=== PATIENT | male | born 1940 | race Caucasian/White ===

== ENCOUNTER 2020-01-29 17:37 | Outpatient (REF) | payer MEDICARE, SELFPAY ==
[2020-01-29 20:58] LABS: Anion Gap 11.7 mmol/L (3-11); BUN 17 mg/dL (7-18); CO2 24.3 mmol/L (21.0-32.0); CREATININE 0.94 mg/dL (0.70-1.30); Calcium 9.5 mg/dL (8.5-10.1); Calculated LDL 125 mg/dL (<100); Chloride 103 mmol/L (98-107); Cholesterol 209 mg/dL (<200); Glucose 90 mg/dL (74-106); HDL Cholesterol 63 mg/dL (40-60); Potassium 4.1 mmol/L (3.5-5.1); Sodium 139 mmol/L (136-145); Triglyceride 108 mg/dL (<150)
[2020-01-29 21:43] LABS: Hemoglobin A1C 6.3 % (<5.7)
== END 2020-01-29 17:57 ==
LOC: LBN 17:37
PROVIDERS: PCP Nurse Practitioner Family; Visit Provider Nurse Practitioner Family
DX: I10 Essential (primary) hypertension (principal); R73.01 Impaired fasting glucose
CPT/HCPCS: 80048; 80061; 83036

== ENCOUNTER 2020-03-11 01:33 | Outpatient (CLI) | payer MEDICARE, SELFPAY ==
--- NOTE | 2020-03-11 09:00 | DI.US_ITS ---
EXAM: US SOFT TISSUE HEAD OR NECK CLINICAL HISTORY: Suspected lipoma, posterior neck,D17.0. TECHNIQUE: Ultrasound was performed using standard protocol. COMPARISON: No exams were available for comparison FINDINGS: Sonographic assessment utilizing grayscale and color Doppler imaging was performed and targeted to th e area of clinical concern. Near concern posteriorly there is a subcutaneous vascular slightly hyperechoic relatively well-define d mass measuring approximately 3.4 x 1.5 x 3.1 centimetres.. Probably a lipoma. IMPRESSION: Probable lipoma as described above. Recommend follow-up ultrasound in 6 months to ensure stability,, r earlier if clinically indicated. DATA REPOSITORY:
== END 2020-03-11 01:53 ==
PROVIDERS: PCP Nurse Practitioner Family; Visit Provider Nurse Practitioner Family
DX: D17.0 Benign lipomatous neoplasm of skin and subcutaneous tissue of head, face and neck (principal)
CPT/HCPCS: 76536

== ENCOUNTER → 2020-06-17 14:41 | Outpatient (BNVA) | payer MEDICARE, SELFPAY | PROVIDERS: PCP Nurse Practitioner Family; Referring Provider Nurse Practitioner Family; Visit Provider Surgery | DX: D17.0 Benign lipomatous neoplasm of skin and subcutaneous tissue of head, face and neck (principal); Z85.21 Personal history of malignant neoplasm of larynx | CPT/HCPCS: 11422; 99202; 99205 ==

== ENCOUNTER 2020-06-17 17:22 | Outpatient (REF) | payer MEDICARE, SELFPAY ==
--- NOTE | 2020-06-17 16:00 | SOFT_PTH ---
PATIENT: Melvin Deleon LOC: [facility] U#:[id number] AGE/SX: 79/M ROOM: RE06/17/[address]: Meron Rocha : 1940 BED: DIS: 06/17/2020 SPEC #: [id number] RECD: 06/17/20 17:30 STATUS: JOSE E RERosa Elena #: [id number] JESSICA: 06/17/20 16:[address]: Meron Rocha DEPT: Surgical Specimen RECD BY: Shruthi Infante ENTERED: 06/17/20 17:30 SP TYPE: SOFT OTHR DR: JUDIE العلي Tissues: 1 - SOFT TISSUE-CYST(NOT LIPOMA) Procedures: GROSS AND MICRO LEVEL 5 Comments: [id number]
== END 2020-06-17 17:23 | disposition home or self-care (01) ==
LOC: LBN 17:22
PROVIDERS: PCP Nurse Practitioner Family; Visit Provider Surgery
DX: D17.0 Benign lipomatous neoplasm of skin and subcutaneous tissue of head, face and neck (principal); Z85.21 Personal history of malignant neoplasm of larynx
CPT/HCPCS: 88305; 88307

== ENCOUNTER → 2020-06-28 08:44 | Outpatient (BNVA) | payer MEDICARE, SELFPAY | PROVIDERS: PCP Nurse Practitioner Family; Referring Provider Nurse Practitioner Family; Visit Provider Physical Therapy Assistant | DX: Z48.02 Encounter for removal of sutures (principal) ==

== ENCOUNTER 2021-04-10 17:23 | Outpatient (REF) | payer MEDICARE, SELFPAY ==
[2021-04-10 18:05] LABS: Hemoglobin A1C 6.4 % (<5.7)
[2021-04-10 18:14] LABS: Anion Gap 10.7 mmol/L (3-11); BUN 18 mg/dL (7-18); CO2 22.3 mmol/L (21.0-32.0); CREATININE 0.8 mg/dL (0.70-1.30); Calcium 9.2 mg/dL (8.5-10.1); Calculated LDL 136 mg/dL (<100); Chloride 104 mmol/L (98-107); Cholesterol 208 mg/dL (<200); Glucose 117 mg/dL (74-106); HDL Cholesterol 59 mg/dL (40-60); Potassium 4.6 mmol/L (3.5-5.1); Sodium 137 mmol/L (136-145); Triglyceride 69 mg/dL (<150)
== END 2021-04-10 17:24 | disposition home or self-care (01) ==
LOC: LBN 17:23
PROVIDERS: PCP Nurse Practitioner Family; Visit Provider Nurse Practitioner Family
DX: I10 Essential (primary) hypertension (principal); R73.03 Prediabetes; E78.5 Hyperlipidemia, unspecified
CPT/HCPCS: 80048; 80061; 83036

== ENCOUNTER → 2021-04-16 17:27 | Outpatient (CLI) | payer MEDICARE, SELFPAY ==
--- NOTE | 2021-04-16 11:00 | DI.US_ITS ---
Exam(s) US SCROTUM EXAM: US SCROTUM CLINICAL HISTORY: Very enlarged right testicle. No trauma, N50.89 TECHNIQUE: Ultrasound performed using standard protocol. COMPARISON: US US SOFT TISSUE HEAD OR NECK from 03/11/2020 FINDINGS: Scrotal ultrasound was performed according to the usual protocol. Testes show homogeneous echotextur e and are symmetrical in size. There is mildly increased vascular flow to the right testis as compar ed to the left. There is no intra testicular mass. There is a bilateral hydrocele, right greater than left. There is an 8 millimeter in diameter epididymal head cyst or spermatocele on the right. Incidental note is made of small scrotal pearls. IMPRESSION: Bilateral hydrocele, right greater than left. Minimally asymmetrical vascular flow to the testes, right greater than left, clinical correlation is requested regarding any possibility of orchitis. DATA REPOSITORY:
== END ==
PROVIDERS: PCP Nurse Practitioner Family; Visit Provider Nurse Practitioner Family
DX: N50.89 Other specified disorders of the male genital organs (principal); N44.8 Other noninflammatory disorders of the testis; N43.3 Hydrocele, unspecified; N50.3 Cyst of epididymis
CPT/HCPCS: 76870

== ENCOUNTER → 2021-04-22 14:30 | Outpatient (BNVA) | payer MEDICARE, SELFPAY | PROVIDERS: PCP Nurse Practitioner Family; Referring Provider Nurse Practitioner Family; Visit Provider Urology | DX: N40.1 Benign prostatic hyperplasia with lower urinary tract symptoms (principal); N13.8 Other obstructive and reflux uropathy; N43.3 Hydrocele, unspecified; Z12.5 Encounter for screening for malignant neoplasm of prostate | CPT/HCPCS: 36415; 99204; 99214 ==

== ENCOUNTER 2021-04-22 17:28 | Outpatient (REF) | payer MEDICARE, SELFPAY ==
[2021-04-22 22:06] LABS: PSA, Diagnostic 4.4 ng/mL (0.0-6.5)
== END 2021-04-22 17:29 | disposition home or self-care (01) ==
LOC: LBN 17:28
PROVIDERS: PCP Nurse Practitioner Family; Visit Provider Urology
DX: N40.1 Benign prostatic hyperplasia with lower urinary tract symptoms
CPT/HCPCS: 84153

== ENCOUNTER 2021-08-04 20:14 | Outpatient (REF) | payer MEDICARE, SELFPAY ==
[2021-08-04 20:49] LABS: Abs Immature Grans 0.01 10^3/uL (0.0-0.06); Absolute Basophil Count 0.04 10^3/uL (0.0-0.2); Absolute Eosinophil Count 0.42 10^3/uL (0.0-0.7); Absolute Neutrophil Count 2.78 10^3/uL (1.2-6.7); Basophils % 0.7; Eosinophils % 7.1; HCT 44.4 % (40.0-50.0); HGB 15.2 g/dL (13.5-17.5); Immature Grans % 0.2; MCH 32.2 pg (27.0-33.0); MCHC 34.2 % (32.0-36.0); MCV 94.1 fL (80-95); MPV 9.4 fL (8.0-11.0); Monocytes % 8.4; Neutrophils % 46.6; Platelet Count 259 10^3/uL (130-400); RBC 4.72 10^6/uL (4.36-5.78); RDW 13.1 % (11.8-14.1); RDW-SD 45.2 fL; WBC 5.95 10^3/uL (4.4-10.8)
[2021-08-04 21:02] LABS: ALT 29 U/L (16-63); AST 17 U/L (15-37); Alkaline Phosphatase 57 U/L (46-116); Anion Gap 7.2 mmol/L (3-11); BUN 14 mg/dL (7-18); Bilirubin, Total 0.7 mg/dL (0.2-1.0); CO2 23.8 mmol/L (21.0-32.0); CREATININE 0.9 mg/dL (0.70-1.30); Calcium 8.9 mg/dL (8.5-10.1); Chloride 105 mmol/L (98-107); Creatine Kinase 102 U/L (39-308); Glucose 99 mg/dL (74-106); Potassium 4.3 mmol/L (3.5-5.1); Sodium 136 mmol/L (136-145); Total Protein 7.7 g/dL (6.4-8.2)
[2021-08-05 17:28] LABS: CRP, High Sensitivity 1.04 mg/L (See Note)
== END 2021-08-04 20:15 | disposition home or self-care (01) ==
LOC: LBN 20:14
PROVIDERS: PCP Nurse Practitioner Family; Visit Provider Physician Assistant
DX: I10 Essential (primary) hypertension (principal); M79.89 Other specified soft tissue disorders
CPT/HCPCS: 80053; 82550; 86141; 85025

== ENCOUNTER 2021-09-24 11:27 | Outpatient (CLI) | payer MEDICARE, SELFPAY ==
[2021-09-24 13:07] LABS: Magnesium 1.8 mg/dL (1.8-2.4)
[2021-09-24 13:25] LABS: D-Dimer 1020 ng/mlFEU (<500)
== END 2021-09-24 11:28 | disposition home or self-care (01) ==
LOC: LOS 11:29
PROVIDERS: PCP Nurse Practitioner Family; Referring Provider Nurse Practitioner Family; Visit Provider Nurse Practitioner Family
DX: M79.661 Pain in right lower leg (principal); M79.662 Pain in left lower leg
CPT/HCPCS: 36415; 83735; 85379

== ENCOUNTER 2021-09-26 00:21 | Outpatient (CLI) | payer MEDICARE, SELFPAY ==
--- NOTE | 2021-09-26 07:00 | DI.US_ITS ---
Exam(s) US EXTREMITY VENOUS BI EXAM: US EXTREMITY VENOUS BI CLINICAL HISTORY: eval for DVT,bilat calf pain,m79.661,m79.662 TECHNIQUE: Ultrasound performed using standard protocol. COMPARISON: US US SCROTUM from 04/16/2021 FINDINGS: Duplex venous ultrasound both lower extremities was performed with 2D and Doppler evaluation. There is no evidence of deep venous thrombosis. Note is made of bilateral apparent complex Bhardwaj's cysts, measuring up to about 28 by 30 x 13 millime ters in diameter on the left and about 15 x 15 x 50 millimeters in diameter on the right. IMPRESSION: No evidence deep venous thrombosis. Large bilateral complex Bhardwaj's cysts noted. DATA REPOSITORY:
== END 2021-09-26 00:41 ==
LOC: DI 00:21
PROVIDERS: PCP Nurse Practitioner Family; Visit Provider Nurse Practitioner Family
DX: M79.661 Pain in right lower leg (principal); M79.662 Pain in left lower leg; M71.22 Synovial cyst of popliteal space [Baker], left knee; M71.21 Synovial cyst of popliteal space [Baker], right knee
CPT/HCPCS: 93970

== ENCOUNTER 2022-05-25 14:00 | Outpatient (CLI) | payer MEDICARE, SELFPAY ==
--- NOTE | 2022-05-25 11:00 | DI.RAD_ITS ---
Exam(s) XR KNEE LT 3V AP,LAT,GURU EXAM: XR KNEE LT 3V AP,LAT,GURU CLINICAL HISTORY: knee pain, left, M25.562. TECHNIQUE: 2D digital imaging was performed. Three views. COMPARISON: No exams were available for comparison FINDINGS: BONES: No acute fracture is present. No bony destructive lesion is seen. JOINTS: Severe narrowing of the medial femoral tibial joint space with a [id number]-uk-[id number] appearance. So me lateral subluxation of the tibia with respect to the femur. Flattening of the tibial spines. Per iarticular spurring noted throughout. Small joint effusion. SOFT TISSUE: Normal. IMPRESSION: Severe degenerative changes, greatest of the medial femoral tibial joint. DATA REPOSITORY: RADIATION DOSE DELIVERED:
== END 2022-05-25 14:20 ==
LOC: DI 14:01
PROVIDERS: PCP Nurse Practitioner Family; Visit Provider Physician Assistant
DX: M17.12 Unilateral primary osteoarthritis, left knee (principal)
CPT/HCPCS: 73562

== ENCOUNTER 2022-06-01 02:38 | Outpatient (CLI) | payer MEDICARE, SELFPAY ==
[2022-06-01 12:43] LABS: Hemoglobin A1C 7.1 % (<5.7)
[2022-06-01 12:49] LABS: Anion Gap 8.1 mmol/L (3-11); BUN 23 mg/dL (7-18); CO2 27.9 mmol/L (21.0-32.0); CREATININE 0.9 mg/dL (0.70-1.30); Calcium 9.7 mg/dL (8.5-10.1); Calculated LDL 99 mg/dL (<100); Chloride 102 mmol/L (98-107); Cholesterol 175 mg/dL (<200); Glucose 152 mg/dL (74-106); HDL Cholesterol 52 mg/dL (40-60); Potassium 4.3 mmol/L (3.5-5.1); Sodium 138 mmol/L (136-145); Triglyceride 122 mg/dL (<150)
== END 2022-06-01 02:39 | disposition home or self-care (01) ==
LOC: LBO 02:38
PROVIDERS: PCP Nurse Practitioner Family; Visit Provider Nurse Practitioner Family
DX: I10 Essential (primary) hypertension (principal); R73.03 Prediabetes
CPT/HCPCS: 36415; 80048; 80061; 83036

== ENCOUNTER 2023-03-18 09:19 | Outpatient (CLI) | payer MEDICARE, SELFPAY ==
[2023-03-18 12:38] LABS: Hemoglobin A1C 7.5 % (<5.7)
[2023-03-18 13:20] LABS: Anion Gap 12.1 mmol/L (3-11); BUN 21 mg/dL (7-18); CO2 25.9 mmol/L (21.0-32.0); CREATININE 0.9 mg/dL (0.70-1.30); Calcium 9.5 mg/dL (8.5-10.1); Chloride 102 mmol/L (98-107); Estimated GFR 85.27 (mL/min/1.73m2); Glucose 179 mg/dL (74-106); Potassium 4.2 mmol/L (3.5-5.1); Sodium 140 mmol/L (136-145); TSH (W/Ref FT4) 1.44 uIU/mL (0.36-3.74)
[2023-03-18 20:14] LABS: PSA, Screening 1.7 ng/mL (<=6.5)
== END 2023-03-18 09:20 | disposition home or self-care (01) ==
LOC: LOS 09:19
PROVIDERS: PCP Nurse Practitioner Family; Referring Provider Nurse Practitioner Family; Visit Provider Nurse Practitioner Family
DX: Z12.5 Encounter for screening for malignant neoplasm of prostate (principal); E11.9 Type 2 diabetes mellitus without complications; I10 Essential (primary) hypertension
CPT/HCPCS: 36415; 80048; 84153; 83036; 84443

== ENCOUNTER 2023-03-18 13:53 | Outpatient (REF) | payer MEDICARE, SELFPAY ==
[2023-03-18 15:41] LABS: Bilirubin Negative (Negative); Blood Trace-intact (Negative); Clarity Cloudy (Clear); Glucose Negative (Negative); Ketones Negative (Negative); Leukocyte Esterase Moderate (Negative); Nitrite Negative (Negative); Specific Gravity 1.025 (1.005-1.025); Urobilinogen 0.2 mg/dL (Up to 0.2); pH 5.5 (5-8)
[2023-03-18 15:49] LABS: WBC >50 HPF (0-5)
[2023-03-18 15:50] LABS: Bacteria Few HPF (Negative); C & S Indicated? Yes; Casts Negative LPF (Negative); Crystals Negative HPF (Negative); Epithelial Cells Few HPF (Negative); Mucus Heavy (Negative); RBC 0-2 HPF (0-2)
== END 2023-03-18 13:54 | disposition home or self-care (01) ==
LOC: LBN 13:53
PROVIDERS: PCP Nurse Practitioner Family; Visit Provider Nurse Practitioner Family
DX: N40.1 Benign prostatic hyperplasia with lower urinary tract symptoms (principal); R82.998 Other abnormal findings in urine
CPT/HCPCS: 87077; 81003; 81015; 87086

== ENCOUNTER 2023-04-19 07:54 | Outpatient (REF) | payer MEDICARE, SELFPAY ==
[2023-04-19 15:05] LABS: Bilirubin Negative (Negative); Blood Negative (Negative); Clarity Clear (Clear); Glucose Negative (Negative); Ketones Negative (Negative); Leukocyte Esterase Negative (Negative); Nitrite Negative (Negative); Specific Gravity 1.015 (1.005-1.025); Urobilinogen 0.2 mg/dL (Up to 0.2)
[2023-04-19 16:02] LABS: COMMENT (LAB VIEW ONLY) 77.85 mg/dL; Microalb ug/mg Crea 7.2 ug/mg Cr
== END 2023-04-19 07:55 | disposition home or self-care (01) ==
LOC: LBN 07:54
PROVIDERS: PCP Nurse Practitioner Family; Visit Provider Nurse Practitioner Family
DX: N40.1 Benign prostatic hyperplasia with lower urinary tract symptoms (principal); E11.9 Type 2 diabetes mellitus without complications
CPT/HCPCS: 81003; 82043; 82570

== ENCOUNTER 2024-04-24 09:02 | Outpatient (CLI) | payer MEDICARE, SELFPAY ==
[2024-04-24 13:05] LABS: ALT 27 U/L (16-63); AST 25 U/L (15-37); Albumin 3.7 g/dL (3.4-5.0); Alkaline Phosphatase 65 U/L (46-116); Anion Gap 10.9 mmol/L (3-11); BUN 12 mg/dL (7-18); Bilirubin, Total 0.92 mg/dL (0.2-1.0); CO2 25.1 mmol/L (21.0-32.0); CREATININE 0.9 mg/dL (0.70-1.30); Calcium 9.3 mg/dL (8.5-10.1); Chloride 106 mmol/L (98-107); Estimated GFR 84.74 (mL/min/1.73m2); Glucose 205 mg/dL (74-106); Sodium 142 mmol/L (136-145); Total Protein 7.3 g/dL (6.4-8.2)
[2024-04-24 13:12] LABS: Hemoglobin A1C 6.8 % (<5.7)
[2024-04-24 18:59] LABS: HBs Antibody, Quant 107.8 mIU/mL (See Note); Hep B Surface Ab Positive (See Note); Hepatitis B Core Antibody Positive (Negative); Hepatitis B Surface Antigen Negative (Negative)
[2024-04-24 19:07] LABS: HIV-1/2 Ag & Ab Screen Negative (Negative)
[2024-04-24 20:14] LABS: Lab Add On Test DONE
[2024-04-25 19:43] LABS: Hepatitis C Ab w Rflx HCV PCR Negative (Negative)
== END 2024-04-24 09:03 | disposition home or self-care (01) ==
LOC: LOS 09:02
PROVIDERS: PCP Nurse Practitioner Family; Referring Provider Nurse Practitioner Family; Visit Provider Nurse Practitioner Family
DX: E11.9 Type 2 diabetes mellitus without complications (principal); Z11.4 Encounter for screening for human immunodeficiency virus [HIV]; Z00.00 Encounter for general adult medical examination without abnormal findings; Z11.59 Encounter for screening for other viral diseases
CPT/HCPCS: 36415; 80053; 86704; 86706; 86803; 87340; 87389; 83036

== ENCOUNTER → 2024-05-05 08:12 | Outpatient (BNVA) | payer MEDICARE, SELFPAY | PROVIDERS: PCP Nurse Practitioner Family; Referring Provider Nurse Practitioner Family; Visit Provider Physical Therapy Assistant | DX: I73.9 Peripheral vascular disease, unspecified (principal) | CPT/HCPCS: 93922 ==

== ENCOUNTER 2024-11-23 15:12 | Emergency (ER) | payer MEDICARE, SELFPAY ==
[2024-11-23 15:16] VITALS: BP 143/85; PULSE 87; RESP 18; TEMP 36.8; O2SAT 95
--- NOTE | 2024-11-23 15:36 | W.ED.GENAD ---
Discharge Plan Disposition Patient Disposition: Home Condition: Stable Discharge Details Clinical Impression: Fall, Abrasion head, Abrasion of arm, left, Abrasion of arm, right Primary Care Provider: Eveline Ryan ED Provider: Andrea Lugo Home Meds and New Rx's Prescriptions: Continued amlodipine 5 mg tablet 5 mg PO DAILY Qty: 90 3RF metformin 500 mg tablet extended release 24 hr 500 mg PO DAILY Qty: 90 3RF trazodone 50 mg tablet 50 mg PO QHS PRN (Reason: sleep) Qty: 90 3RF (DME) blood-glucose meter [OneTouch Ultra2 Meter] Kit See Rx Instructions .MEDSUPPLY Qty: 1 2RF Rx Instructions: Check blood sugar twice a day (DME) OneTouch Ultra Test Strip See Rx Instructions .MEDSUPPLY Qty: 200 3RF Rx Instructions: Check blood sugar twice a day (DME) lancets [OneTouch UltraSoft Lancets] Misc See Rx Instructions .MEDSUPPLY Qty: 200 4RF Rx Instructions: Check blood sugar twice a day rosuvastatin 5 mg tablet 5 mg PO DAILY Qty: 90 3RF lisinopril 40 mg tablet 40 mg PO DAILY Qty: 90 3RF Discharge Instructions Additional Instructions: The wound you sustained were not deep enough to require any sutures. These will heal with time. If you have redness spreading away from the wounds, feel like discharge from the wounds or symptoms such as severe headaches or persistent vomiting return to the emergency department for reevaluation. HPI General Mode of arrival: ambulatory. Date/Time Provider Initiated Documentation: 11/23/24 15:20. Limitations to Documentation: no limitations. Information obtained by: patient. History of Present Illness 84 year old M presents to the emergency department with the chief complaint of fall, arm and face abrasions, described as moderate, Patient started experiencing this hour(s) (1) and it has been constant. No relieving factors improve symptom(s), No exacerbating factors reported . Patient notes no other symptoms.. Related Data Home Medications ?Medication ?Instructions ?Recorded ?Confirmed blood sugar diagnostic (OneTouch #200 ea 06/15/22 09/18/24 Ultra Test strips) blood-glucose meter (OneTouch #1 ea 06/15/22 09/18/24 Ultra2 Meter kit) lancets (OneTouch UltraSoft #200 ea 06/15/22 09/18/24 Lancets) amlodipine 5 mg tablet 5 mg PO DAILY #90 tabs 04/24/24 09/18/24 metformin 500 mg tablet,extended 500 mg PO DAILY #90 tabs 04/24/24 09/18/24 release 24 hr lisinopril 40 mg tablet 40 mg PO DAILY #90 tabs 06/13/24 09/18/24 rosuvastatin 5 mg tablet 5 mg PO DAILY #90 tabs 06/13/24 09/18/24 trazodone 50 mg tablet 50 mg PO QHS PRN sleep #90 tabs 09/18/24 09/18/24 Previous Rx's ?Medication ?Instructions ?Recorded blood sugar diagnostic (OneTouch #200 ea 06/15/22 Ultra Test strips) blood-glucose meter (ViacorTouch #1 ea 06/15/22 Ultra2 Meter kit) lancets (ViacorTouch UltraSoft #200 ea 06/15/22 Lancets) amlodipine 5 mg tablet 5 mg PO DAILY #90 tabs 04/24/24 metformin 500 mg tablet,extended 500 mg PO DAILY #90 tabs 04/24/24 release 24 hr lisinopril 40 mg tablet 40 mg PO DAILY #90 tabs 06/13/24 rosuvastatin 5 mg tablet 5 mg PO DAILY #90 tabs 06/13/24 trazodone 50 mg tablet 50 mg PO QHS PRN sleep #90 tabs 09/18/24 Allergies Allergy/AdvReac Type Severity Reaction Status Date / Time No Known Allergies Allergy Verified 11/23/24 15:19 General Stated Complaint: Fall/Non TraumaCriteria EULOGIO: 3 Review of Systems All systems reviewed & are unremarkable except as noted in HPI and below Constitutional Constitutional: Denies chills, Denies fever(s) and Denies weakness ENT Ears, Nose, Mouth, and Throat: Denies neck pain Cardiovascular Cardiovascular: Denies chest pain and Denies dyspnea Respiratory Respiratory: Denies cough and Denies dyspnea Gastrointestinal Gastrointestinal: Denies abdominal pain, Denies nausea and Denies vomiting Musculoskeletal Musculoskeletal: Denies neck pain Neurologic Neurologic: Denies weakness Exam Const General: no acute distress Orientation: alert HENMT Head: no palpable skull fracture Ears: external ears normal General nose exam: no nasal polyps and septum normal Mouth: moist mucous membranes Eyes General: appearance normal, both eyes and all related structures Neck Neck: normal visual inspection Resp Effort & Inspection: normal respiratory effort and able to speak in complete sentences Cardio Rate: regular rate GI Palpation: soft and nontender Neuro General: patient alert and patient oriented x3 Extrem General: full ROM and capillary refill normal Psych Mental Status: mental status grossly normal Course Vital Signs Vital signs: Vital Signs Temperature 36.8 C 11/23/24 15:16 Pulse 87 11/23/24 15:16 Respiratory Rate 18 11/23/24 15:16 Blood Pressure 143/85 H 11/23/24 15:16 Pulse Oximetry 95 11/23/24 15:16 Temperature 36.8 C 11/23/24 15:16 Pulse 87 11/23/24 15:16 Respiratory Rate 18 11/23/24 15:16 Blood Pressure 143/85 H 11/23/24 15:16 Pulse Oximetry 95 11/23/24 15:16 Oxygen Delivery Method Room Air 11/23/24 15:16 Oxygen Flow Rate 0 11/23/24 15:16 Medical Decision Making 84-year-old male with a history of prior laryngectomy, hypertension who comes in with chief complaint of fall. He was at work and tripped over an uneven surface falling forward. He had no preceding symptoms such as chest pain or difficulty breathing or tenderness. He did not lose consciousness. He has a small half a centimeter abrasion superior to the right orbit. He denies any headaches or nausea. He has multiple small less than 1 cm abrasions on both posterior forearms. He has no bony tenderness, full range of motion of the elbow, wrist and hand with intact distal pulses. Denies neck pain. No neck pain. No C-spine or T-spine or L-spine tenderness.. No loss of consciousness, he is on anticoagulation he has no headache did not feel imaging of his head is indicated. Will have nursing to have his wounds to confirm that the sutures are required. After cleaning of his arms there is no wounds that require any sutures on his arms or his face. He was given Steri-Strips and Band-Aids. He still has no pain or discomfort. 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 Followed by [facility] Otolaryngology Surgical History S/P excision of lipoma (06/17/20) S/P laryngectomy (11/19/15) Family History Mother , age 90 Stroke Father , age 68 Lung cancer Sister , age 85 No problems noted. Sister , age 34 Diabetes Sister No problems noted. Brother , age 53 Esophageal cancer Brother , age 60 Liver disease Brother Diabetes Maternal Grandfather No problems noted. Maternal Grandmother No problems noted. Paternal Grandfather No problems noted. Paternal Grandmother No problems noted. Social History Smoking/Tobacco Use Status: Former Tobacco Use (Quit 2014) tobacco type: cigarettes Quit Date: 11/11/15 Tobacco: How many years used: 50 Second Hand Exposure: Yes Smoking risk assessment performed?: Yes Alcohol Intake: current Alcohol Intake frequency: a few times a week Alcohol type: beer and hard liquor Drug use: Never Substance use type: does not use Adopted: No Caregiver/Support person: No Foster care: No Household members: none Housing: apartment Communication Needs: None Education Level: college Do you need help understanding health information?: Never current occupation: Retired Pets and animals: No Sexually active: Yes Do you think of yourself as: bisexual Current gender identity: male What is your relationship status?: How often do you talk on the phone with friends or family?: three or more times per week How often do you get together with friends or relatives?: three or more times per week How often do you attend yarsani or anabaptism services?: 1-3 times per year Do you belong to any clubs or organized social groups?: yes Panel score (0-1 are the most socially isolated patients): 2 What type of physical activity do you participate in: walking Duration: 60-90 minutes/day Frequency: 5-6 times per week Alice/Pentecostalism: Moravian Special alice needs: No Agree to transfusion: Yes Seatbelt use: always Helmet use: Yes Helmet use: always Drive intox or ride w/intox sanitation truck driver: No Working smoke detector in home: Yes Carbon monox detector in home: Yes Firearms in home: No Do you feel safe at home: Yes Do you feel safe in your relationship?: Yes Victim of physical abuse: No Victim of emotional abuse: No Victim of sexual abuse: No
== END 2024-11-23 16:18 | disposition home or self-care (01) ==
PROVIDERS: Emergency Provider Emergency Medicine; PCP Nurse Practitioner Family
DX: S40.812A Abrasion of left upper arm, initial encounter (principal); S40.811A Abrasion of right upper arm, initial encounter; S00.91XA Abrasion of unspecified part of head, initial encounter; W19.XXXA Unspecified fall, initial encounter
CPT/HCPCS: 99282; 99281

== ENCOUNTER 2024-12-22 15:58 | Outpatient (REF) | payer MEDICARE, SELFPAY ==
[2024-12-22 15:12] LABS: COMMENT (LAB VIEW ONLY) 282.77 mg/dL; Microalb ug/mg Crea 15.9 ug/mg Cr
== END 2024-12-22 15:59 | disposition home or self-care (01) ==
LOC: LBN 15:58
PROVIDERS: PCP Nurse Practitioner Family; Visit Provider Nurse Practitioner Family
DX: E11.9 Type 2 diabetes mellitus without complications (principal)
CPT/HCPCS: 82043; 82570

== ENCOUNTER 2025-01-15 02:30 | Outpatient (CLI) | payer MEDICARE, SELFPAY ==
--- NOTE | 2025-01-15 07:00 | DI.RAD_ITS ---
Exam(s) XR ANKLE RT COMPLETE XR TIB/FIB RT EXAM: XR ANKLE RT COMPLETE and XR tib/fib RT CLINICAL HISTORY: right ankle redness and swelling L03.115 CELLULITIS RT M25.471 EFFUSION. TECHNIQUE: 2D digital imaging was performed of the right tib/fib and ankle. Six images were obtained. AP, lateral and oblique views were obtained. COMPARISON: There are no priors for comparison. FINDINGS: BONES: No acute fracture is present. No bony destructive lesion is seen. There is a large plantar calcaneal spur. There is a small enthesophyte at the posterior calcaneus. JOINTS: The ankle mortise is normally aligned. There are degenerative changes seen at the knee. There is chondrocalcinosis in the femoral tibial joint. SOFT TISSUE: There is soft tissue swelling in the lower leg and around the ankle. No soft tissue gas is present. Tiny well corticated osseous density seen adjacent to the medial malleolus which appears old. Atherosclerotic calcification is present. IMPRESSION: 1. There is edema seen in the soft tissues of the lower extremity and around the ankle which can be seen with cellulitis. No soft tissue gas is seen. 2. There is no radiographic evidence to suggest osteomyelitis at this time. DATA REPOSITORY: RADIATION DOSE DELIVERED:
--- NOTE | 2025-01-15 07:00 | DI.US_ITS ---
Exam(s) US LOWER EXTREMITY VENOUS RT EXAM: US LOWER EXTREMITY VENOUS RT CLINICAL HISTORY: rt leg swelling and redness r/o DVT M79.89 ST DISORDER L03.115 CELLULITIS TECHNIQUE: Right lower extremity venous ultrasound performed using grayscale, color-flow, and spectral Doppler analysis. COMPARISON: No exams were available for comparison FINDINGS: The right common femoral, femoral and popliteal veins demonstrate normal compressibility, augmentation, and color Doppler. The posterior tibial and peroneal veins are patent. The saphenofemoral junction is unremarkable. There is no evidence of a Bhardwaj cyst. There is edema seen in the soft tissues of the right lower extremity. IMPRESSION: No evidence of a right lower extremity DVT. DATA REPOSITORY:
== END 2025-01-15 02:50 ==
LOC: DI 02:31
PROVIDERS: PCP Nurse Practitioner Family; Visit Provider Nurse Practitioner Family
DX: L03.115 Cellulitis of right lower limb (principal); M25.471 Effusion, right ankle; M79.89 Other specified soft tissue disorders; W19.XXXA Unspecified fall, initial encounter
CPT/HCPCS: 73590; 73610; 93971

== ENCOUNTER → 2025-02-08 10:51 | Outpatient (BNVA) | payer MEDICARE, SELFPAY | PROVIDERS: PCP Nurse Practitioner Family; Referring Provider Nurse Practitioner Family; Visit Provider Nurse Practitioner Gerontology | DX: N40.1 Benign prostatic hyperplasia with lower urinary tract symptoms (principal); N52.9 Male erectile dysfunction, unspecified; R39.12 Poor urinary stream; R39.15 Urgency of urination; R39.9 Unspecified symptoms and signs involving the genitourinary system; E11.59 Type 2 diabetes mellitus with other circulatory complications; I10 Essential (primary) hypertension | CPT/HCPCS: 99215; 81002; 51798 ==

== ENCOUNTER → 2025-04-09 14:35 | Outpatient (CLI) | payer MEDICARE, SELFPAY ==
--- NOTE | 2025-04-09 11:05 | DI.RAD_ITS ---
Exam(s) XR CERVICAL SPINE COMP 4-5V EXAM: XR CERVICAL SPINE COMP 4-5V CLINICAL HISTORY: R20.2 bilateral hand paresthesia, cervical arthritis?. TECHNIQUE: 2D digital imaging was performed. Five views were performed. COMPARISON: No exams were available for comparison FINDINGS: BONES: No fracture or destructive lesion. Severe facet degenerative changes are present throughout. There is multilevel bilateral neural foraminal narrowing. DISKS: There are degenerative changes with prominent endplate osteophytes and mild disc space narrowing. ALIGNMENT: There is degenerative straightening of the normal cervical lordosis. The odontoid and atlantoaxial articulations are normal. SOFT TISSUE: Vascular clips. IMPRESSION: Advanced degenerative changes of the cervical spine. DATA REPOSITORY: RADIATION DOSE DELIVERED:
== END ==
LOC: DI 04-18 14:35
PROVIDERS: PCP Nurse Practitioner Family; Visit Provider Nurse Practitioner Family
DX: M50.11 Cervical disc disorder with radiculopathy, high cervical region (principal); M99.63 Osseous and subluxation stenosis of intervertebral foramina of lumbar region
CPT/HCPCS: 72050